=== PATIENT | male | born 1945 | race Two or more races ===

== ENCOUNTER 2022-08-20 14:11 | Emergency (ER) | payer OTHER ==
[~2022-08-20] VITALS: Ht 162.6 cm; Wt 83.9 kg
[2022-08-20] MEDS ORDERED: ALDACTONE25 MG PO (14:29)
[2022-08-20] MEDS ORDERED: COREG CR10 MG PO (14:29)
[2022-08-20] MEDS ORDERED: GLUMETZA500 MG PO (14:29)
[2022-08-20] MEDS ORDERED: LYRICA20 MG/1 ML PO (14:29)
[2022-08-20] MEDS ORDERED: ELIQUIS2.5 MG PO (14:29)
[2022-08-20] MEDS ORDERED: MELATONIN1 MG/1 ML PO (14:30)
[2022-08-20] MEDS ORDERED: REMINYL8 MG PO (14:30)
[2022-08-20] MEDS ORDERED: LIPITOR40 M1 PO (14:30)
== END 2022-08-20 18:04 | disposition home or self-care (01) ==
LOC: ER 14:11
DX: U07.1 COVID-19 (principal); B34.9 Viral infection, unspecified; R53.81 Other malaise; R53.1 Weakness; R10.9 Unspecified abdominal pain; I10 Essential (primary) hypertension; E11.9 Type 2 diabetes mellitus without complications; Z79.84 Long term (current) use of oral hypoglycemic drugs